=== PATIENT | female | born 1990 | race Two or more races ===

== ENCOUNTER 2021-04-14 18:31 | Emergency (ER) | payer SELFPAY ==
[~2021-04-14] VITALS: Ht 157.5 cm; Wt 96.4 kg
[2021-04-14] MEDS ORDERED: IV NORMAL SALINE 1000ML BAG 1,000 ML IV ONE (19:00)
[2021-04-14 20:00] VITALS: BP 119/61
[2021-04-14 20:15] LABS: BARBITURATES NEG (NEG); BENZODIAZEPINES POS (NEG); CANNABINOIDS NEG (NEG); COCAINE NEG (NEG); METHADONE NEG (NEG); OPIATES NEG (NEG); PHENCYCLIDINE NEG (NEG)
[2021-04-14 20:16] LABS: BILIRUBIN,URINE NEGATIVE (NEG); CLARITY,URINE CLEAR; COLOR,URINE YELLOW; NITRITE,URINE NEGATIVE (NEG); PROTEIN,URINE NEGATIVE (NEG-TRACE)
[2021-04-14 20:17] LABS: BACTERIA,URINE 0 /HPF (0-FEW); RBC,URINE 0 /HPF (0-2)
[2021-04-14 20:22] LABS: AMPHETAMINE/METHAMPHETAMINE NEG (NEG)
[2021-04-14 20:26] LABS: BASO # 0.1 x10^3/uL (0.0-0.2); BASO % 1 % (0-3); EOS # 0.2 x10^3/uL (0.0-0.7); EOS % 2 % (0-3); HEMATOCRIT 37.1 % (36.0-47.0); HEMOGLOBIN 11.9 g/dL (12.0-15.5); LYMPH # 2.1 x10^3/uL (1.0-4.8); LYMPH % 28 % (24-48); MEAN CORPUSCULAR HEMOGLOBIN 31 pg (25-35); MEAN CORPUSCULAR HGB CONC 32 g/dL (31-37); MEAN CORPUSCULAR VOLUME 96 fL (79-100); MONO # 0.5 x10^3/uL (0.0-1.1); MONO % 7 % (0-9); NEUT # 4.6 x10^3/uL (1.8-7.7); NEUT % 62 % (31-73); PLATELET COUNT 189 x10^3/uL (140-400); RED BLOOD COUNT 3.87 x10^6/uL (3.50-5.40); RED CELL DISTRIBUTION WIDTH 14.3 % (11.5-14.5); WHITE BLOOD COUNT 7.5 x10^3/uL (4.0-11.0)
[2021-04-14 20:27] LABS: CALCIUM 8.2 mg/dL (8.5-10.1); CREATININE 0.4 mg/dL (0.6-1.0); GFR 190.1; POTASSIUM 3.9 mmol/L (3.5-5.1)
--- NOTE | 2021-04-14 20:34 | PHYS DOC ---
Past Medical History Past Medical History: Seizure Additional Past Medical Histor: "Heart issue" (IRIS LOFTON) Past Surgical History: No Surgical History (IRIS LOFTON) Smoking Status: Never Smoker Alcohol Use: None Drug Use: None (IRIS LOFTON) General Adult EDM: Chief Complaint: SEIZURE HPI: HPI: Patient is a 30 year old female who presents via EMS with reported 20+ seizures today. Patient is a markedly difficult historian. From the information I can gather, patient reports to have been having near constant seizures beginning 5 days ago. She states she did not come to the emergency department because her did not want her to call 911 and she otherwise did not have a ride. Today, she reports she "had a stroke." She reports having numbness throughout her whole body and that her lips were shaking. She reports this lasted for approximately 1 hour, and has no residual symptoms. Patient denies post ictal disorientation or confusion. Prior to the current bout of seizure-like acti lliiane, she reports she has not had a seizure for several years. She takes zonisamide daily and has not missed any doses. In one of her seizures today, she reports she hit her head on a cabinet. She now has right-sided head pain and neck pain. (IRIS LOFTON) Review of Systems: Review of Systems: Unable to obtain secondary to patient being uncooperative with interview. (IRIS LOFTON) Heart Score: C/O Chest Pain: No (IRIS LOFTON) Current Medications: Current Medications Medications (Trade) Dose Ordered Sig/Jair Start Time Stop Time Status Last Admin Dose Admin Lorazepam (Ativan Inj) 1 mg 1X ONCE 04/14/21 18:45 04/14/21 20:08 DC 04/14/21 19:34 1 MG Sodium Chloride 1,000 ml @ 1,000 mls/hr 1X ONCE 04/14/21 19:00 04/14/21 20:08 DC 04/14/21 19:37 1,000 MLS/HR (IRIS LOFTON) Allergies: Allergies: Allergies Coded Allergies Type Severity Reaction Last Updated Verified No Known Drug Allergies 04/14/21 No (IRIS LOFTON) Physical Exam: PE: Constitutional: Well developed, well nourished, no acute distress, non-toxic appearance. HENT: Normocephalic, atraumatic, bilateral external ears without deformity/ecchymosis or discharge, oropharynx moist, no oral exudates, nose without deformity. Eyes: PERRLA, EOMI, conjunctiva normal, no discharge. Neck: No step-offs, midline tenderness appreciated, supple, no stridor. Cardiovascular: Heart rate regular rhythm, no murmur. Lungs & Thorax: Bilateral breath sounds clear to auscultation. Skin: Warm, dry, no erythema, no rash, no abrasion, no laceration. Back: No step-off, no midline tenderness, no CVA tenderness. Extremities: No tenderness, no cyanosis, no clubbing, ROM intact, no edema. Neurologic: Alert and oriented x4, motor strength 5/5 in extremities x4, no focal deficits noted. Psychologic: Affect dramatic, poor judgment, mood "I'm having a seizure." (IRIS LOFTON) Current Patient Data: Labs: Laboratory Tests Test 04/14/21 19:50 04/14/21 19:59 Urine Collection Type U cath Urine Color Yellow Urine Clarity Clear Urine pH 8.0 (<5.0-8.0) Urine Specific [place] 1.020 (1.000-1.030) Urine Protein Negative mg/dL (NEG-TRACE) Urine Glucose (UA) Negative mg/dL (NEG) Urine Ketones (Stick) Negative mg/dL (NEG) Urine Blood Negative (NEG) Urine Nitrite Negative (NEG) Urine Bilirubin Negative (NEG) Urine Urobilinogen Dipstick 1.0 mg/dL (0.2 mg/dL) Urine Leukocyte Esterase Negative (NEG) Urine RBC 0 /HPF (0-2) Urine WBC 1-4 /HPF (0-4) Urine Squamous Epithelial Cells Mod /LPF Urine Bacteria 0 /HPF (0-FEW) Urine Mucus Marked /LPF POC Urine HCG, Qualitative Hcg negative (Negative) Vital Signs: Vital Signs Date Time Temp Pulse Resp B/P (MAP) Pulse Ox O2 Delivery O2 Flow Rate FiO2 04/14/21 18:45 98.4 68 16 97/51 (66) 100 Room Air 98.4 (IRIS LOFTON) Radiology/Procedures: Radiology/Procedures: PROCEDURE: CT HEAD AND CERVICAL SPINE WO CT Head W/O Contrast: History: Reason: pain, loc, sz / Spl. Instructions: / History: Comparison: none Axial images were obtained without contrast. There is left frontal lobe encephalomalacia. The remaining sierra and white matter appears normal and symmetrical for the patients age. There is no mass effect, extraaxial fluid collections or hydrocephalus. There is no gross bleed. There is no focal loss of sierra-white matter distinction to suggest acute ischemia, i.e. stroke. Impression: 1. 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 2. No acute findings. End impression CT C-Spine without contrast: Clinical History: Reason: pain, loc, sz / Spl. Instructions: / History: Technique: Axial helical images of the cervical spine were obtained without contrast, axial coronal and sagittal reconstruction was performed. Findings: There is no loss of vertebral body stature. There is no prevertebral soft tissue swelling. The vertebral bodies are well aligned. The C1-C2 relationship is normal. The visualized osseous structures appear normal. There is straightening of the normal cervical lordosis which can be positional or can be secondary to muscle spasm. Evaluation of the central canal is limited without contrast. Impression: No acute findings. Clinical correlation suggested. PQRS Compliance Statement: One or more of the following individualized dose reduction techniques were utilized for this examination: 1. Automated exposure control 2. Adjustment of the mA and/or kV according to patient size 3. Use of iterative reconstruction technique Electronically signed by: Yosef Lyon III, MD (04/14/2021 8:55 PM) [facility] (IRIS LOFTON) Course & Med Decision Making: Course & Med Decision Making Pertinent Labs and Imaging studies reviewed. (See chart for details) 30-year-old female with history of epilepsy presents to the department via EMS with complaint of "20 seizures and a stroke" today. Upon further questioning, which took significant effort and rephrasing, patient has been having multiple daily seizures for 5 days. She also suffered head trauma secondary to losing consciousness prior to a seizure. She states that her know she had a stroke because her body "went numb" and her lips began shaking. The symptoms lasted less than an hour. Prior to the recent seizure-like activity she has been experiencing, she states her last seizure was several years ago. While patient appears to have seizure-like activity, she resists with full muscle strength, she is responsive to physical stimuli and her reflexes are intact. Work-up today will include labs that include CK and lactic acid. Additionally CT head and neck plain will be obtained to evaluate for TBI or other acute injury. Labs are reassuring. Imaging is negative. I informed the patient that she will be discharged home and she should follow-up with her neurologist regarding her medication regimen and possible break-through seizures. Patient has had no witnessed seizures here in the department. During the times where she believed that she was "having a seizure," her reflexes were intact and she had muscle control, observed by resistance. In discussing this with the patient, she request to "speak to someone else." I then reiterated that I was her provider, but that there is a physician here with whom I discussed her case. I told her that I would get her discharge paperwork together, that she could sign and that we would get her a ride home. She stated, "Well, I am not going to sign it, because I want to stay." If needed, I will contact security to remove her from the department, as I have no medical reason to admit the patient. Patient verbalized an understanding and agreement to treatment plan and recommended follow up. She left the department without need to contact security staff. (IRIS LOFTON) Dragon Disclaimer: Dragon Disclaimer: This electronic medical record was generated, in whole or in part, using a voice recognition dictation system. (IRIS LOFTON) Departure Departure Impression: Primary Impression: History of seizure disorder Additional Impression: Malingering Disposition: 01 HOME / SELF CARE / HOMELESS Condition: STABLE Patient Instructions: Seizure, Adult, [id number] Additional Instructions: Please make a follow-up appointment with your neurologist, as he may address your concerns. Please return to the emergency department if you develop any new symptoms. Attending Signature Attending Signature I have reviewed the PA/EDUCATION PROGRAM COORDINATOR's note and plan of care. I was available for consultation as needed during the patient's visit in the emergency department. I agree with the clinical impression, plan, and disposition. (MUNDO RAMIREZ DO) IRIS LOFTON Apr 14, 2021 20:34 MUNDO RAMIREZ DO Apr 15, 2021 23:47
[2021-04-14 20:42] LABS: ALBUMIN 3.4 g/dL (3.4-5.0); ALBUMIN/GLOBULIN RATIO 1.1 (1.0-1.7); TOTAL BILIRUBIN 0.2 mg/dL (0.2-1.0); TOTAL PROTEIN 6.5 g/dL (6.4-8.2)
--- NOTE | 2021-04-14 20:58 | RAD ---
CT Head W/O Contrast: History: Reason: pain, loc, sz / Spl. Instructions: / History: Comparison: none Axial images were obtained without contrast. There is left frontal lobe encephalomalacia. The remaining sierra and white matter appears normal and s ymmetrical for the patients age. There is no mass effect, extraaxial fluid collections or hydrocepha flash. There is no gross bleed. There is no focal loss of sierra-white matter distinction to suggest [facility] [place] ischemia, i.e. stroke. Impression: 1. 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 2. No acute findings. End impression CT C-Spine without contrast: Clinical History: Reason: pain, loc, sz / Spl. Instructions: / History: Technique: Axial helical images of the cervical spine were obtained without contrast, axial coronal and sagittal reconstruction was performed. Findings: There is no loss of vertebral body stature. There is no prevertebral soft tissue swelling. The vert ebral bodies are well aligned. The C1-C2 relationship is normal. The visualized osseous structures a ppear normal. There is straightening of the normal cervical lordosis which can be positional or can b e secondary to muscle spasm. Evaluation of the central canal is limited without contrast. Impression: No acute findings. Clinical correlation suggested. PQRS Compliance Statement: One or more of the following individualized dose reduction techniques were utilized for this examinat ion: 1. Automated exposure control 2. Adjustment of the mA and/or kV according to patient size 3. Use of iterative reconstruction technique Electronically signed by: Yosef Lyon III, MD (04/14/2021 8:55 PM) [facility]
== END 2021-04-14 21:38 | disposition home or self-care (01) ==
LOC: ER 18:31
DX: G40.909 Epilepsy, unspecified, not intractable, without status epilepticus (principal); R51.9 Headache, unspecified; M54.2 Cervicalgia; Z76.5 Malingerer [conscious simulation]
CPT/HCPCS: 36415; 70450; 72125; 80053; 80307; 81001; 81025; 82550; 83605; 85025; 96361; 96374; 99285; J2060; J7030